=== PATIENT | female | born 1970 | race Caucasian/White ===

== ENCOUNTER 2017-03-07 07:36 | Day surgery (SDC) | payer OTHER ==
[~2017-03-07] VITALS: Ht 167.6 cm; Wt 136.0 kg
[~2017-03-07 07:36] MED LIST: 0.9% Sodium Chloride 1,000 ML IV SCH; AMOX500C2 PO; ASPI-973 PO; ATEN50TA PO; LISI10TA PO; Sodium Chloride LOK Flush 10 mL Syringe IV PRN; TRIA1CAP PO; fentaNYL-PF 50 mCg/mL 2 mL Inj IVPUSH PRN
[2017-03-07 08:00] VITALS: BP 152/77; PULSE 85; RESP 17; O2SAT 96
[2017-03-07] MEDS ORDERED: MULT-1080 PO (08:04)
[2017-03-07] MEDS ORDERED: CHOL10008 PO (08:04)
[2017-03-07 09:03] VITALS: BP 147/69; PULSE 90; RESP 16; O2SAT 95
[2017-03-07 09:19] VITALS: BP 124/58; PULSE 86; RESP 16; O2SAT 99
--- NOTE | 2017-03-07 09:31 | ENDO ---
[address] [address] ENDOSCOPY PROCEDURE PATIENT: LILIANA POP : 1970 MR#: [id number] ADMIT: 03/07/2017 JOB ID: [id number] DATE: 03/07/2017 TYPE OF OPERATION: Colonoscopy with biopsy. PREOPERATIVE DIAGNOSIS(ES): History of ulcerative colitis and diarrhea. POSTOPERATIVE DIAGNOSIS(ES): 1. Mild erythema in the sigmoid colon status post biopsy. 2. Mild sigmoid diverticulosis. 3. Abnormal mucosa with pseudopolyps seen from 90 to 85 cm from the anus status post several biopsies and GI spot tattoo proximal and distal to this lesion. 4. Ulcers at the ileocecal valve status post biopsy. ANESTHESIA: 1. Fentanyl 200 mcg. 2. Versed 8 mg IV administered. COMPLICATION: None. BLOOD LOSS: Minimal. DESCRIPTION OF PROCEDURE: After the risks and benefits were explained to the patient, informed consent was obtained. After anesthesia administered, colonoscope was then inserted from the rectum to the cecum. Mucosa carefully examined. Prep of the patient was excellent. After procedure was done, the scope withdrawn and procedure terminated. FINDINGS: Upon inspection of the anus, no masses, hemorrhoids, ulcers are seen. Throughout the entire examination, there is mild sigmoid diverticulosis. There was mild erythema in the sigmoid colon. This abnormality of the mucosa with pseudopolyps that was seen from 90 to 85 cm from the anus which was biopsied and GI spot tattoo deployed proximal and distal to the lesion. Retroflexion was not performed. There were ulcers in the ileocecal valve that were biopsied. Terminal ileum appeared normal. Biopsies taken at terminal ileum and also random colon. IMPRESSIONS: 1. Ulcers of the ileocecal valve status post biopsy. 2. Normal terminal ileum. 3. Abnormal mucosa were pseudopolyps from 85-90 cm from the anus status post biopsy and gastrointestinal spot tattoo proximal and distal to this lesion. 4. Mild sigmoid diverticulosis. 5. Mild erythema of the sigmoid colon status post biopsy. RECOMMENDATIONS: Await pathology results. If the abnormal mucosa with pseudopolyps seen in the right-sided colon turns out to be malignant, then would recommend a surgery consultation. If this is not malignant, then the patient will need to be on medications for ulcerative colitis which includes steroids, Lialda and Rowasa enemas.
--- NOTE | 2017-03-09 16:51 | PATH ---
SURGICAL PATHOLOGY Attending Physician:Jad Luna MD CASE STATUS: Signed Out PATIENT NAME: ILLIANA POP PID: [id number] : 1970 DATE COLLECTED:03/07/2017 20:54 SPECIMEN: 1: Ileum, Biopsy 2: Colon, Biopsy 3: Colon, Biopsy 4: Colon, Biopsy 5: Colon, Biopsy CLINICAL HISTORY: 1). TERMINAL ILEUM BIOPSY 2). ULCER AT ILEOCECAL VALVE 3). ABNORMAL MUCOSA PSEUDOPOLYPS AT 90-85CM 4). RANDOM COLON BIOPSY 5). SIGMOID PSEUDO POLYP BIOPSY FINAL DIAGNOSIS: 1. Terminal Ileum, Biopsy: Small bowel mucosa, consistent with terminal ileum, with no diagnostic abnormality. Negative for active inflammation, dysplasia, or malignancy. 2. Ulcer at Ileocecal Valve, Biopsy: Focal active inflammation. Please see comment. Negative for dysplasia or malignancy. 3. Abnormal Mucosa of Pseudopolyps at 90-85 cm, Biopsies: Chronic active colitis, moderate. Please see comment. Negative for dysplasia or malignancy. 4. Random Colon, Biopsies: Colonic mucosa with no diagnostic abnormality. Negative for active, chronic, and microscopic colitis. Negative for dysplasia or malignancy. 5. Sigmoid Pseudopolyp, Biopsy: Polypoid portions of colorectal mucosa with scattered lymphoid aggregates. Negative for microscopic colitis by trichrome stain; the control tissue stained appropriately. Negative for dysplasia and malignancy. ICD10: K52.9 NOTE: Part 2: Histologic sections demonstrate regions of focal active inflammation, foci of possible mucosal erosion, and a mildly distorted crypt architecture. The differential diagnosis includes NSAID use, an acute self-limited bacterial colitis, diverticular disease, trauma, prolapse, and idiopathic inflammatory bowel disease, in the appropriate clinical setting. Part 3: Histologic sections demonstrate a distorted crypt architecture, increased lymphocytes, plasma cells, and neutrophils within the lamina propria, cryptitis, and crypt abscesses. Scattered lymphoid aggregates are present, but no definite granulomas are identified. The differential diagnosis includes NSAID use, an acute self-limited bacterial colitis, diverticular disease, trauma, prolapse, and idiopathic inflammatory bowel disease, in the appropriate clinical setting. GROSS DESCRIPTION: The specimen is received in five formalin filled containers labeled with the patient's name. 1). The specimen is sublabeled " TI " and consists of a 0.3 x 0.2 x 0.2 CM portion of tissue which is entirely submitted in cassettes 1A. 2). The specimen is sublabeled "ulcer at ileocecal valve" and consists of 2 portions of tissue which aggregate to 0.3 x 0.3 x 0.2 CM. The specimen is entirely submitted in cassette 2A. 3). The specimen is sublabeled "abnormal mucosa pseudopolyps at 90-85 CM" and consists of 5 portions of tissue which aggregate to 0.4 x 0.4 x 0.2 CM. The specimen is entirely submitted in cassette 3A. 4). The specimen is sublabeled "random colon" and consists of 4 portions of tissue which aggregate to 0.5 x 0.5 x 0.3 CM. The specimen is entirely submitted in cassette 4A. 5). The specimen is sublabeled "sigmoid pseudopolyp" and consists of 2 portions of tissue which aggregate to 0.2 x 0.2 x 0.2 CM. The specimen is entirely submitted in cassette 5A. 03/07/2017 [facility] ICD-9 CODES: CPT CODES: 1: 23862 2: 51264 3: 79507 4: 87541 5: 98810, 72646 Electronically Signed Out Jane Gardner MD [facility], [place] [address] Technical component performed at [facility], [address] [place] [address] Ave[address], [place], [address]
== END 2017-03-07 23:59 | disposition home or self-care (01) ==
LOC: END 07:36
PROVIDERS: ATTEND Internal Medicine Gastroenterology
DX: K51.80 Other ulcerative colitis without complications (principal); K57.30 Diverticulosis of large intestine without perforation or abscess without bleeding
CPT/HCPCS: 45380; 45381; 99153; G0500; J2250; J3010; J7030